=== PATIENT | female | born 1965 | race Caucasian/White ===

== ENCOUNTER 2019-08-26 19:07 | Emergency (ER) | payer OTHER ==
[~2019-08-26] VITALS: Ht 149.9 cm; Wt 72.6 kg
--- NOTE | 2019-08-26 19:27 | NUR ---
PT AAOX4. AMBULATORY. PT C/O N/V. ALSO PER PATIENT "WHEN I'M SLEEPING IN THE NIGHT I CAN'T BREATH." X3 NIGHTS. -SOB. PT PLACED ON MONITOR AND PULSE OX. NO ACUTE DISTRESS NOTED. MD AT BEDSIDE. WILL CONTINUE TO MONITOR.
--- NOTE | 2019-08-26 19:41 | NUR ---
OPERATIONS AND MAINTENANCE MANAGER AT BEDSIDE FOR BLOOD COLLECTION.
--- NOTE | 2019-08-26 20:03 | NUR ---
RADIOLOGY AT BEDSIDE
--- NOTE | 2019-08-26 20:05 | NUR ---
Corporate Concierge is at the bedside for blood draw.
[2019-08-26 20:09] LABS: BASOPHILS % (AUTO) 0.9 % (0.0-2.0); EOSINOPHILS % (AUTO) 0.9 % (0.0-6.0); HEMATOCRIT 43 % (33-45); HEMOGLOBIN 14.1 g/dL (11.5-14.8); LYMPHOCYTES % (AUTO) 15.5 % (20.0-44.0); MEAN CORPUSCULAR HGB CONC 33 g/dl (31.0-36.0); MEAN CORPUSCULAR VOLUME 85 fL (82-100); MONOCYTES % (AUTO) 4.2 % (2.0-12.0); NEUTROPHILS % (AUTO) 78.5 % (43.0-81.0); PLATELET COUNT (AUTO) 257 /CMM (150-450); RED BLOOD CELL COUNT(AUTO) 5.03 MIL/uL (4.0-5.2)
[2019-08-26 20:10] LABS: BASOPHILS # (AUTO) 0.1 /CMM (0.0-0.2); LYMPHOCYTES # (AUTO) 1.7 /CMM (0.8-4.8); MONOCYTES # (AUTO) 0.5 /CMM (0.1-1.30); NEUTROPHILS # (AUTO) 8.6 /CMM (1.8-8.9)
--- NOTE | 2019-08-26 20:10 | NUR ---
Pt is c/o feeling nauseated. Dr Waller was notified.
--- NOTE | 2019-08-26 20:13 | NUR ---
VERBAL MD ORDER "4MG ZOFRAN XNOW."
[2019-08-26] MEDS ORDERED: ONDANSETRON HCL/PF 4 MG/2 ML VIAL ONE (20:15)
[2019-08-26 20:20] LABS: CALCIUM, SERUM 9.7 mg/dL (8.5-10.1); CARBON DIOXIDE 32 mmol/L (21-32); CHLORIDE 101 mmol/L (98-107); CREATININE 0.7 mg/dL (0.6-1.3); GLUCOSE 311 mg/dL (74-106); POTASSIUM 4.2 mmol/L (3.5-5.1); SODIUM SERUM 138 mmol/L (136-145); UREA NITROGEN, BLOOD 19 mg/dL (7-18)
[2019-08-26 20:33] LABS: ALANINE AMINOTRANSFERASE 30 U/L (12-78); ALBUMIN 3.8 g/dL (3.4-5.0); ALKALINE PHOSPHATASE 109 U/L (46-116); ASPARTATE AMINOTRANSFERASE 15 U/L (15-37); B-TYPE NATRIURETIC PEPTIDE 127 PG/ML (0-125); BILIRUBIN,DIRECT 0.1 mg/dL (0.0-0.2); BILIRUBIN,TOTAL 0.4 mg/dL (0.2-1.0); TOTAL PROTEIN, SERUM 7.4 g/dL (6.4-8.2)
[2019-08-26] MEDS ORDERED: ONDANSETRON HCL/PF 4 MG/2 ML VIAL IV ONE (21:00)
--- NOTE | 2019-08-26 21:19 | NUR ---
Patient discharged to home in stable condition. Written and verbal after care instructions given. Patient verbalizes understanding of instruction. IV removed. Catheter intact and site benign. Pressure and 4x4 applied to site. No bleeding noted. pt ambulatory with a steady gait.
[2019-08-26 21:46] VITALS: BP 106/63
== END 2019-08-26 21:20 | disposition home or self-care (01) ==
LOC: ER 19:12
DX: R06.02 Shortness of breath (principal); I10 Essential (primary) hypertension; E78.5 Hyperlipidemia, unspecified; E11.9 Type 2 diabetes mellitus without complications; Z98.890 Other specified postprocedural states; Z60.2 Problems related to living alone
CPT/HCPCS: 36415; 71045; 80048; 80076; 83880; 84484; 85025; 93005; 96374; 99284; J2405